=== PATIENT | female | born 1995 | race Caucasian/White ===

== ENCOUNTER 2016-09-29 03:13 | Emergency (ER) | payer SELFPAY ==
[2016-09-29 04:09] VITALS: BP 112/65
== END 2016-09-29 04:09 | disposition home or self-care (01) ==
LOC: ED 03:13
DX: O26.891 Other specified pregnancy related conditions, first trimester (principal); L60.0 Ingrowing nail; Z3A.11 11 weeks gestation of pregnancy

== ENCOUNTER 2017-01-02 21:27 | Emergency (ER) | payer MEDICAID ==
[2017-01-03 01:00] VITALS: BP 110/68
== END 2017-01-03 01:00 | disposition home or self-care (01) ==
LOC: ED 21:27
DX: L60.0 Ingrowing nail (principal)
CPT/HCPCS: J2001